=== PATIENT | male | born 2000 | race Caucasian/White ===

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

== ENCOUNTER 2020-12-29 00:16 | Emergency (ER) | payer OTHER ==
[~2020-12-29] VITALS: Ht 177 cm; Wt 81.0 kg
--- OUTSIDE RECORDS SUMMARY | 2020-12-29 00:22 | XMS REPORT | Clinical Summary ---
Author Author [facility] Organization [facility] Address Unknown Phone Unavailable Care Team Providers Care Success Coach Name Role Phone Samantha Mccullough MD PP [phone] Allergies No known active allergies Medications End Date Status Medication Sig Dispensed Refills Start Date Active dextroamphetamine/ampheta Take by 0 mine (MYDAYIS ORAL) mouth. Active Problems Not on file Social History Date Tobacco Use Types Packs/Day Years Used Never Smoker Smokeless Tobacco: Never Used Sex Assigned at Date Recorded Not on file Last Filed Vital Signs Reading Time Taken Comments Vital Sign 114/56 10/15/2019 11:56 AM CDT Blood Pressure 92 10/15/2019 11:56 AM CDT Pulse 36.9 C (98.4 F) 10/15/2019 11:56 AM CDT Temperature 18 10/15/2019 11:56 AM CDT Respiratory Rate 97% 10/15/2019 11:56 AM CDT Oxygen Saturation - - Inhaled Oxygen Concentration 71.2 kg (157 lb) 10/15/2019 11:56 AM CDT reported Weight 180.3 cm (5' 11") 10/15/2019 11:56 AM CDT reported Height 21.9 10/15/2019 11:56 AM CDT Body Mass Index Plan of Treatment Not on file Results Not on filefrom Last 3 Months Insurance Type Payer Benefit Subscriber ID Effective Phone Address Plan / Dates Group [employer]/C [id number] 2020 [employer] -Present Care Teams Start Date End Date Success Coach Relationship Specialty 10/15/19 Samantha Mccullough PCP - General Pediatrics MD [facility] [id number] [facility] [address] [place] [id number]
--- OUTSIDE RECORDS SUMMARY | 2020-12-29 00:22 | XMS REPORT | Summary of Care ---
Author Author [facility] Organization [facility] Address Unknown Phone Unavailable Encounter NILSA Hay [id number] Date(s): 10/31/20 - 11/05/20 [facility] [address] [id number] Encounter Diagnosis Nasal congestion (Discharge Diagnosis) - 10/31/20 Headache (Discharge Diagnosis) - 10/31/20 Sore throat (Discharge Diagnosis) - 10/31/20 Discharge Disposition: Home - 01 Attending Physician: FRANCESCO ARAUJO MD Vital Signs Most recent to 1 oldest [Reference Range]: Temperature 97.5 DegF [96.8-99.7 DegF] (10/31/20 11:42 AM) Temp Method Temporal (10/31/20 11:42 AM) Pulse Rate [60-100 86 bpm bpm] (10/31/20 11:42 AM) Respiratory Rate 16 br/min [15-20 br/min] (10/31/20 11:42 AM) Mean Arterial 98 mmHg Pressure [65 mmHg] (10/31/20 11:42 AM) Blood Pressure 143/76 mmHg [90-180/50-90 mmHg] (10/31/20 11:42 AM) Blood Pressure Automatic Method (10/31/20 11:42 AM) Blood Pressure Sitting Position (10/31/20 11:42 AM) Problem List No data available for this section Allergies, Adverse Reactions, Alerts No Known Medication Allergies Medications Flonase Daily, 0 Refill(s) Start Date: 10/31/20 Status: Ordered ibuprofen 0 Refill(s) Start Date: 10/31/20 Status: Ordered Mucinex 600 mg, PO, Q12H (Every 12 hours), 0 Refill(s) Start Date: 10/31/20 Status: Ordered Results No data available for this section Immunizations No data available for this section Procedures No data available for this section Social History Social History Type Response Functional Status No data available for this section Assessment and Plan No data available for this section Hospital Discharge Instructions No data available for this section
[2020-12-29] MEDS ORDERED: RX-CYCLOBENZAPRINE 10 MG (FLEXERIL) TAB PPK#3 PO STA (00:46)
[2020-12-29] MEDS ORDERED: RX-ONDANSETRON 4 MG ODT (ZOFRAN) PPK #4 PO STA (00:46)
[2020-12-29] MEDS ORDERED: ONDA4TAB11 PO (00:52)
[2020-12-29] MEDS ORDERED: CYCL10TA9 PO (00:52)
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
[2020-12-29 00:54] VITALS: BP 147/90
== END 2020-12-29 00:59 | disposition home or self-care (01) ==
LOC: EDUNIT# 00:16 → ER 00:19
DX: S06.0X9A Concussion with loss of consciousness of unspecified duration, initial encounter (principal); Z71.89 Other specified counseling; V89.2XXA Person injured in unspecified motor-vehicle accident, traffic, initial encounter
CPT/HCPCS: 99281